=== PATIENT | female | born 1975 | race Caucasian/White ===

== ENCOUNTER 2020-02-28 12:01 | Outpatient (REF) | payer OTHER, SELFPAY | END 2020-02-28 12:02 | disposition home or self-care (01) | LOC: HO.LAB 12:01 | PROVIDERS: Visit Provider Internal Medicine | DX: Z20.828 Contact with and (suspected) exposure to other viral communicable diseases (principal) | CPT/HCPCS: 36415; C9803; U0003 ==

== ENCOUNTER 2020-03-11 15:19 | Emergency (ER) | payer MEDICAID, SELFPAY ==
[2020-03-11 15:43] VITALS: BP 125/77; PULSE 85; RESP 18; TEMP 37.1; O2SAT 97; BMI 27.2
--- NOTE | 2020-03-11 17:48 | ED_ITS ---
HPI - General Adult General Chief complaint: General Medical Stated complaint: facial swelling Time Seen by Provider: 03/11/20 16:44 Source: patient Mode of arrival: ambulatory Limitations: language barrier ([place] speaking only, seismic interpreter used to obtain information) History of Present Illness HPI narrative: 44-year-old female who presents emergency department for evaluation of right-sided facial pain and swelling. Patient states that she has had this pain for approximately 1 week. She states the pain is a constant, sharp pain which waxes and wanes in intensity. She states the pain can be 8/10 at its worst. She states the pain is radiating to her face, neck and back of her head. She denies any decreased hearing. The pain does not change with chewing or eating. She denies fever, chills, sore throat, difficulty swallowing. She states she has had similar pain in the past and was treated with antibiotics for sinus infection. She did see her PCP on (3 days prior to evaluation) was diagnosed with TMJ and started on ibuprofen 800 mg 3 times a day. She states that despite taking his medication she has had no relief of her pain and her pain is gone worst. Related Data Previous Rx's Medication Instructions Recorded amoxicillin-pot clavulanate 1 tab PO Q12H #20 tab 03/11/20 [Augmentin] [id number] 4 drp OTIC (EAR) LEFT TID 7 Days 03/11/20 #10 ml Allergies Allergy/AdvReac Type Severity Reaction Status Date / Time No Known Allergies Allergy Verified 03/11/20 15:43 [No Known Allergies*] Review of Systems Review of Systems: Yes all other systems are reviewed and are negative Neurologic: Reports Abnormal speech present [facility] Past Medical History [facility] Narrative: Patient has history of anxiety, she denies tobacco use, she occasionally drinks alcohol, she denies drug use. Surgical History (Updated 03/11/20 @ 15:55 by Elizabeth Stafford) H/O: hysterectomy Social History Social History Advance Directives: No Advance Directives Information Provided: No Physical Exam Vital Signs: Vital Signs: Last Vital Signs Temp 98.8 F 03/11/20 15:43 Pulse 85 03/11/20 15:43 Resp 18 03/11/20 15:43 BP 125/77 03/11/20 15:43 Pulse Ox 97 03/11/20 15:43 Body Mass Index 27.2 Const: General: cooperative and healthy appearing Nutritional Appearance: overweight Orientation/consciousness: oriented to person and oriented to place Limitations: no limitations HENMT: Head: Yes normal to inspection, Yes normocephalic and Yes atraumatic Ears: hearing grossly normal bilaterally, TM's normal bilaterally and external ear abnormal auricular tenderness and pain with movement of external ear General nose exam: Normal external nose present Face and sinus: Yes face symmetric, No crepitus, No ecchymosis, No erythema, No edema and Yes sinus tenderness (Right frontal, right maxillary, moderate) Eyes: General: appearance normal, both eyes and all related structures Alignment and Position: alignment normal Periorbital: periorbital findings normal Eyelids: Yes eyelids normal Conjunctivae: conjunctivae normal Sclerae: sclerae normal Pupils: Equal, round and reactive pupils present Neck: Neck: Yes normal visual inspection, Yes no lymphadenopathy, Yes no meningeal signs, Yes trachea midline, Yes supple, No anterior neck swelling and Yes other (Tender right sternocleidomastoid, trapezius) Thyroid: Thyroid normal Neuro: General: oriented to person, oriented to place and no meningeal signs Cranial nerves: Yes CN's II-XII intact bilaterally and Yes Equal, round and reactive pupils present Cognition (Neuro): normal cognition Speech: Abnormal speech present Motor exam (neuro): 5/5 motor strength present throughout Psych: Appearance: grossly normal and well [place] Course Course Course Narrative: 44-year-old female who presents emergency department for evaluation of right ear and right facial pain x1 week. Physical examination revealed that she was afebrile with vital signs are normal. The patient does have tenderness with palpation of her right ear with normal tympanic membrane and tenderness to palpation of her maxillary and frontal sinuses on the right. Possible the patient may have TMJ but I am also concerned that she might have an external ear infection and a sinus infection. The patient will be treated with Cortisporin ear drops 3 drops 3 times a day for 1 week and Augmentin 875 mg twice a day for 10 days. She was advised to continue taking ibuprofen and to add Tylenol to her pain medication regimen. She was advised to follow-up with her PCP for re-evaluation and return if her symptoms get worse. Discharge Plan Discharge Clinical Impression: Acute otitis externa of right ear Qualifiers: Otitis externa type: unspecified type Qualified Code(s): H60.501 - Unspecified acute noninfective otitis externa, right ear Sinusitis Qualifiers: Sinusitis location: maxillary Chronicity: acute Recurrence: non-recurrent Qualified Code(s): J01.00 - Acute maxillary sinusitis, unspecified Patient Disposition: Home, Self-Care Instructions: Sinusitis (ED), Otitis Externa (ED) Additional Instructions: Your exam is concerning for possible infection of the external right ear and of the right maxillary and frontal sinuses. Take Augmentin 875 mg, 1 pill twice a day for 10 days. Use the Cortisporin drops, 4 drops in to your right ear 3 times a day for 1 week. Continue taking the Motrin ( ibuprofen) 800 mg pills, 1 pills every 6 hours as needed for pain as prescribed by your doctor. Also take Tylenol (acetaminophen) 500 mg pills, 2 pills every 4 to 6 hours as needed for pain. Follow-up with your doctor in 2 days. Please return to the emergency department if your symptoms get worse or if you develop any symptoms that are concerning to you. Prescriptions: New amoxicillin-pot clavulanate [Augmentin] 875-125 mg tablet 1 tab PO Q12H Qty: 20 RF: 0 [id number] 3.5-10,000-1 mg/mL-unit/mL-% drops,suspension 4 drp otic (ear) left TID 7 Days Qty: 10 RF: 0 Print Language: [place]
== END 2020-03-11 18:56 | disposition home or self-care (01) ==
PROVIDERS: Emergency Provider Emergency Medicine Emergency Medical Services
DX: H60.501 Unspecified acute noninfective otitis externa, right ear (principal); J01.00 Acute maxillary sinusitis, unspecified; R51.9 Headache, unspecified; M54.5 Low back pain; M54.2 Cervicalgia; Z79.899 Other long term (current) drug therapy
CPT/HCPCS: 99283; 99284

== ENCOUNTER 2020-05-25 12:15 | Outpatient (REF) | payer MEDICAID, SELFPAY ==
[2020-05-25 12:51] LABS: COVID-19 Test Negative (Negative)
== END 2020-05-25 12:16 | disposition home or self-care (01) ==
LOC: HO.LAB 12:15
PROVIDERS: Visit Provider Internal Medicine
DX: Z20.822 Contact with and (suspected) exposure to COVID-19 (principal)
CPT/HCPCS: 36415; 87635; C9803

== ENCOUNTER 2020-11-27 11:16 | Outpatient (REF) | payer MEDICAID, SELFPAY ==
[2020-11-27 11:42] LABS: COVID-19 Test Negative (Negative)
== END 2020-11-27 11:17 | disposition home or self-care (01) ==
LOC: HO.LAB 11:16
PROVIDERS: Visit Provider Internal Medicine
DX: Z20.822 Contact with and (suspected) exposure to COVID-19 (principal)
CPT/HCPCS: 36415; 87635; C9803